=== PATIENT | male | born 1990 | race Caucasian/White ===

== ENCOUNTER → 2019-08-30 | Outpatient (CLI) | payer BC ==
--- NOTE | 2019-09-01 19:38 | XR ---
EXAMINATION TYPE: XR knee complete RT DATE OF EXAM: 08/30/2019 CLINICAL HISTORY: History of surgery 5 years ago with increasing acute on chronic pain. TECHNIQUE: Three views of the right knee are obtained. COMPARISON: Right knee x-ray June 20, 2016. FINDINGS: There is no acute fracture/dislocation evident in right knee. Mild to moderate tricompartm ent joint space loss with mild spurring is redemonstrated. Evidence of prior ACL reconstruction surge ry again seen. The overlying soft tissue appears unremarkable on current study. IMPRESSION: As above.
== END | disposition home or self-care (01) ==
LOC: RADXRYALE 16:11
PROVIDERS: ATTEND Physician Assistant
DX: M25.561 Pain in right knee (principal); Z98.890 Other specified postprocedural states